=== PATIENT | female | born 1995 | race Caucasian/White ===

== ENCOUNTER 2017-01-03 22:58 | Emergency (ER) | payer OTHER ==
[~2017-01-03] VITALS: Ht 157.5 cm; Wt 66.0 kg
[~2017-01-03 22:58] MED LIST: FLUT1SPR9; MULTCHW27 PO; Z.0.NO CURRENT MEDS
[2017-01-03 23:01] VITALS: BP 141/83; PULSE 75; RESP 16; TEMP 98.5; O2SAT 100
[2017-01-03] MEDS ORDERED: ROBA500T PO (23:38)
[2017-01-03] MEDS ORDERED: DICL75TA PO (23:38)
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
== END 2017-01-04 01:10 | disposition home or self-care (01) ==
LOC: NEPD 22:58
DX: S20.212A Contusion of left front wall of thorax, initial encounter (principal); V47.5XXA Car driver injured in collision with fixed or stationary object in traffic accident, initial encounter
CPT/HCPCS: 71101; 99284

== ENCOUNTER 2017-01-06 20:26 | Emergency (ER) | payer SELFPAY ==
[~2017-01-06 20:26] MED LIST changes: +DICL75TA PO; -FLUT1SPR9; -MULTCHW27 PO; +ROBA500T PO; -Z.0.NO CURRENT MEDS
[2017-01-06 20:27] VITALS: BP 155/77; PULSE 71; RESP 16; TEMP 99; O2SAT 100
--- NOTE | 2017-01-06 21:14 | PD ---
Physical Exam Date Seen by Provider: Jan 06, 2017 Time Seen by Provider: 21:13 Data Data Last Documented VS Vital Signs Date Time Temp Pulse Resp B/P Pulse Ox O2 Delivery O2 Flow Rate FiO2 01/06/17 20:27 99.0 71 16 155/77 100 Room Air [facility] Supervised Visit with ROSA: No Narrative Course 21 YO F with complaint of reddened, tender bump of right breast.Just noticed today. --Fever, chills. Vitals reviewed. Awaiting bed placement. Lianet Alonso Jan 06, 2017 21:14
[2017-01-06] MEDS ORDERED: CLIN1CAP5 PO (22:35)
[2017-01-06] MEDS ORDERED: NAPR500T PO (22:35)
--- NOTE | 2017-01-06 22:38 | PD ---
HPI Chief Complaint: Lump, Cyst, Hernia Time Seen by Provider: 22:35 Travel History International Travel<30 days: No Contact w/Intl Traveler<30days: No Traveled to known affect area: No History of Present Illness HPI 21-year-old female presents to the emergency department for evaluation of tender lump to right breast that began about 3 or 4 hours ago. States that it is red, warm and tender to palpation. Denies any discharge or drainage from the site. Denies any nipple discharge. Denies any fever, chills, nausea, vomiting. Denies , last menstrual period 2 weeks ago. Denies any family history of breast cancer. No other complaints. PFSH Past Medical History Medical History: Denies Significant Hx Developmental Delay: No Diminished Hearing: No Immunizations Current: Yes Influenza Vaccination: No ?: Not LMP: 12/26/16 Past Surgical History Surgical History: No Previous Surgery Social History Alcohol Use: No Tobacco Use: No Substance Use: No Allergies-Medications (Allergen,Severity, Reaction): Coded Allergies: No Known Allergies (Verified , 01/06/17) Reported Meds & Prescriptions Reported Meds & Active Scripts Active Naproxen 500 Mg Tab 500 Mg PO BID 10 Days Clindamycin (Clindamycin HCl) 150 Mg Cap 300 Mg PO Q6H 10 Days Review of Systems Except as stated in HPI: all other systems reviewed are Neg Physical Exam Narrative GENERAL: Well-nourished and well-developed pleasant patient in no acute distress who is nontoxic appearing. SKIN: Warm and dry. HEAD: Normocephalic and atraumatic. EYES: No injection, drainage, or hyphema noted. PERRLA. EOMI. ENT: No nasal drainage noted. Oropharynx is clear. NECK: Supple and the trachea is midline. CARDIOVASCULAR: Regular rate and rhythm. RESPIRATORY: Breath sounds are equal bilaterally with no accessory muscle use, wheezing, rhonchi, or crackles. CHEST: Right breast with 0.5 cm raised erythematous lump to the outer edge of the areola at the 11 o'clock position. There is surrounding erythema and warmth of the skin around this lump. No discharge or drainage. No fluctuance. No induration. No nipple discharge. Performed in the presence of Selena FISH. GASTROINTESTINAL: Abdomen is soft, non-tender, and nondistended. MUSCULOSKELETAL: No obvious deformities, swelling, cyanosis, or ecchymosis is present throughout the upper and lower extremities. Patient has full range of motion without any signs of neurovascular compromise. NEUROLOGICAL: Awake, alert, and oriented. Normal speech and gait. Cranial nerves are grossly intact. Data Data Last Documented VS Vital Signs Date Time Temp Pulse Resp B/P Pulse Ox O2 Delivery O2 Flow Rate FiO2 01/06/17 20:27 99.0 71 16 155/77 100 Room Air Orders Clindamycin (Cleocin) (01/06/17 22:45) [facility] Medical Decision Making Medical Screen Exam Complete: Yes Emergency Medical Condition: Yes Differential Diagnosis Cellulitis versus folliculitis versus cyst versus abscess Narrative Course 21-year-old female presents to the emergency department for evaluation of tender lump to right breast that she just noticed several hours ago. Patient is afebrile, vital signs are stable. There is a small lump with a surrounding area of erythema. The lump looks like it's probably an infected hair follicle with a surrounding area of cellulitis. No obvious abscess formation. Patient will be placed on Clindamycin. Discussed supportive care. Advised outpatient follow-up with her PCP. Diagnosis Primary Impression: Cellulitis of right breast Referrals: Primary Care Physician Patient Instructions: Cellulitis (ED), General Instructions Additional Instructions: Apply warm compresses. Take medications as prescribed with food and a full glass of water. Follow-up with your Primary Care Physician. Return to the ED for any acute worsening of symptoms. Med/Other Pt SpecificInfo: Prescription(s) given Scripts Naproxen 500 Mg [id number] Mg PO BID 10 Days Ref 0 Prov:Trish Sanders DO 01/06/17 Clindamycin 150 Mg Imu282 Mg PO Q6H 10 Days Ref 0 Prov:Trish Sanders DO 01/06/17 Disposition: 01 DISCHARGE HOME Condition: Stable Brittany Hogue Jan 06, 2017 22:38
[2017-01-06] MEDS ORDERED: CLINDAMYCIN 150 MG CAP PO ONE (22:45)
== END 2017-01-06 23:15 | disposition home or self-care (01) ==
LOC: NEPE 20:26
DX: N61.0 Mastitis without abscess (principal)
CPT/HCPCS: 99284